=== PATIENT | female | born 1985 | race Caucasian/White ===

== ENCOUNTER 2021-01-11 07:45 | Inpatient (IN) | payer OTHER ==
[~2021-01-11] VITALS: Ht 172.7 cm; Wt 83.5 kg
--- NOTE | ~2021-01-11 | O ---
[facility] [place] [address] OPERATIVE REPORT Name: LIVAN CHANG Room #: 435-P ADM IN M.R.#: [id number] Admission: 01/11/21 Attend Phys: Tom Soriano MD Discharge: Date of : 83 Report #: [id number] THIS REPORT FOR: cc: FAM - No family physician/PCP FAM - No family physician/PCP Jesús Guaman MD ~ DATE OF SERVICE: 01/13/2021 PREOPERATIVE DIAGNOSIS: Symptomatic cholelithiasis. POSTOPERATIVE DIAGNOSIS: Acute cholecystitis. OPERATION: Laparoscopic cholecystectomy. SURGEON: Jesús Guaman MD ANESTHESIA: General. ESTIMATED BLOOD LOSS: Minimal. SPECIMENS: Gallbladder. DESCRIPTION OF PROCEDURE: After informed consent was obtained, the patient was brought to the operating room and placed supine. SCDs were placed and working, preoperative antibiotics were administered, general anesthesia was induced. The abdomen was prepped and draped in the usual sterile fashion. A 10 mm incision was made below the umbilicus. Fascia was incised and a trocar was placed. Pneumoperitoneum was established. Three right upper quadrant 5 mm ports were placed. Gallbladder was grasped at the fundus and retracted cephalad. Infundibulum was grasped and retracted laterally. I dissected out the cystic duct and cystic artery. Cystic duct and artery were identified. Cystic plate was identified. Cystic duct and artery were clipped and ligated leaving 2 clips on the remaining duct and one on the remaining artery. Gallbladder was then taken off the liver bed with electrocautery. It was placed into an Endopouch and removed. Fascia was then closed with a vsazan-kc-[id number] 0 Vicryl. Skin was closed with 4-0 Monocryl. Incisions were dressed with Steri-Strips. COMPLICATIONS: None. DISPOSITION: The patient was taken to recovery in satisfactory condition. By: 1233 [id number] Jesús Guaman MD /nt
[2021-01-11 07:57] VITALS: BP 136/74
[2021-01-11 08:29] LABS: URINE BILIRUBIN NEGATIVE (Negative); URINE BLOOD 3+ (Negative); URINE CLARITY CLEAR; URINE COLOR YELLOW; URINE GLUCOSE-RANDOM* NEGATIVE (Negative); URINE KETONES NEGATIVE (Negative); URINE LEUKOCYTES-REFLEX NEGATIVE (Negative); URINE NITRITE-REFLEX NEGATIVE (Negative); URINE PROTEIN (DIPSTICK) NEGATIVE (Negative); URINE UROBILINOGEN 0.2 E.U./dl (0.2-1.0)
[2021-01-11 09:40] LABS: ABSOLUTE NEUTROPHILS 9.2 thou/uL (1.4-8.2); BASOPHILS 0.2 % (0.0-2.0); EOSINOPHILS 0.3 % (0.0-3.0); HEMATOCRIT 39.7 % (37.0-47.0); HEMOGLOBIN 12.9 gm/dL (12.0-15.0); LYMPHOCYTES 11.7 % (24.0-44.0); MCH 26.8 pg (26.0-34.0); MCHC 32.5 g/dL (28.0-37.0); MCV 82.5 fL (80.0-100.0); MONOCYTES 3.2 % (1.0-8.0); PLATELET COUNT 158 thou/uL (150-400); POLYS 84.6 % (36.0-66.0); RBC 4.82 mil/uL (4.20-5.00); RDW 14.4 % (10.5-14.5); WBC 10.9 thou/uL (4.0-11.0)
[2021-01-11 09:55] LABS: CALCIUM 9.4 mg/dL (8.5-10.1); CREATININE 0.9 mg/dL (0.6-1.0); POTASSIUM 4.2 mmol/L (3.5-5.1)
[2021-01-11 09:55] LABS: CASTS None Seen /LPF (None Seen); MUCUS 0-3 Light strn/LPF (None Seen); SQUAMOUS 4-10 Moderate /LPF (0-3)
[2021-01-11 09:56] LABS: BACTERIA-REFLEX 1-9 Few /HPF (None Seen); CRYSTALS None Seen /LPF (None Seen); URINE RBC 3-10 Few /HPF (NONE SEEN); URINE WBC-REFLEX 0-5 Rare /HPF (0-5)
[2021-01-11 10:01] LABS: ALBUMIN 3.6 g/dL (3.4-5.0); TOTAL BILIRUBIN 0.5 mg/dL (0.2-1.0); TOTAL PROTEIN 8.2 g/dL (6.4-8.2)
[2021-01-11 19:43] VITALS: BP 104/47
[2021-01-11 19:44] VITALS: BP 104/47
--- NOTE | 2021-01-11 20:01 | NUR ---
THIS NURSE ATTEMPTING TO CALL REPORT FOR A SECOND TIME.
[2021-01-11 21:00] VITALS: BP 112/64
--- NOTE | 2021-01-12 02:39 | NUR ---
PT WAS ADMITTED TO THE UNIT FROM THE ER IN A STABLE CONDITION IN THE COMPANY OF HER NIECE.PT DENIED PAIN SO FAR.PT NPO SINCE ADMIT.PT CONT ON IVF ORDERED.PT WITH ANKLE MONITOR.PT TURKISH SPEAKING,ADMISSION CPMPLETED WITH HELP OF NIECE.CONSULT CALLED TO DR BARRAZA VIA ANSWERING MACHINE.PT SLEEPING AT THIS TIME.CALL LIGHT WITHIN REACH.
[2021-01-12 04:00] VITALS: BP 98/53
[2021-01-12 07:48] VITALS: BP 111/51
[2021-01-12 08:19] LABS: ABSOLUTE NEUTROPHILS 3.8 thou/uL (1.4-8.2); BASOPHILS 0.4 % (0.0-2.0); EOSINOPHILS 2.4 % (0.0-3.0); HEMATOCRIT 35.5 % (37.0-47.0); HEMOGLOBIN 11.7 gm/dL (12.0-15.0); LYMPHOCYTES 29.3 % (24.0-44.0); MCH 27.2 pg (26.0-34.0); MCV 82.4 fL (80.0-100.0); MONOCYTES 6.7 % (1.0-8.0); PLATELET COUNT 223 thou/uL (150-400); POLYS 61.2 % (36.0-66.0); RBC 4.31 mil/uL (4.20-5.00); RDW 14.6 % (10.5-14.5); WBC 6.2 thou/uL (4.0-11.0)
[2021-01-12 08:39] LABS: ALBUMIN 2.6 g/dL (3.4-5.0); CALCIUM 8.1 mg/dL (8.5-10.1); CREATININE 0.8 mg/dL (0.6-1.0); MAGNESIUM 2.2 mg/dL (1.8-2.4); POTASSIUM 3.9 mmol/L (3.5-5.1); TOTAL BILIRUBIN 0.7 mg/dL (0.2-1.0); TOTAL PROTEIN 6.8 g/dL (6.4-8.2)
[2021-01-12 09:11] VITALS: BP 98/53
--- NOTE | 2021-01-12 12:51 | NUR ---
ASSUMED CARE OF PT AT 0700 THIS MORNING. ASSESSMENTS PERFORMED AFTER REPORT TAKEN. PT IS A/OX4, [place] SPEAKING ONLY AND USE OF SHOE FITTER IS NEEDED. ASSESSMENTS CHARTED AND OTHERWISE UNREMARKABLE. PT IS UP INDEP AND NO FALL PRECAUTIONS NEEDED. MEDS AND TX GIVEN NEEDED AND SCHEDULED. WILL MONITOR AND NOTE ANY CHANGES.
[2021-01-12 19:14] VITALS: BP 109/53
--- NOTE | 2021-01-13 03:41 | NUR ---
ASSUMED CARE OF PT AT 1900. BEDSIDE REPORT RECIEVED, ALLYSON ASSESSMENT COMPLETE. NIECE AT BEDSIDE. PT HAVING MILD PAIN TO RUQ AT ALLYSON. PT WILL BE AT NPO AT CT. PROVIDED PT EDUCATION. PT VERBALIZED UNDERSTANDING WELL NIECE. IVF RUNNING ORDERED. PT FEBRILE AT 99.0, PRN TYLENOL GIVEN FOR FEVER. PT PREPARING TO HAVE LAPCHOLY IN AM. WENT OVER EDUCATION WITH PT AND NIECE ON WHAT TO EXPECT. PT DENIES ANY OTHER NEEDS AT THIS TIME, CALL LIGHT IN REACH. HOURLY ROUNDING CONTINUING ON.
[2021-01-13 06:32] LABS: CALCIUM 8.5 mg/dL (8.5-10.1); CREATININE 0.8 mg/dL (0.6-1.0)
[2021-01-13 06:39] LABS: HEMATOCRIT 35.5 % (37.0-47.0); HEMOGLOBIN 11.7 gm/dL (12.0-15.0); MCH 27.2 pg (26.0-34.0); MCV 82.5 fL (80.0-100.0); RBC 4.3 mil/uL (4.20-5.00); RDW 14.1 % (10.5-14.5); WBC 7.7 thou/uL (4.0-11.0)
[2021-01-13 08:18] VITALS: BP 117/54
--- NOTE | 2021-01-13 09:35 | NUR ---
ASSUMED PT CARE THIS AM. PT IS ALERT & ORIENTED X4. PT HAS IV SITE ON LFA RUNNING NS @75ML/HR. PT IS UP AD RAMON. PT HAS BEEN NPO SINCE MIDNIGHT. PT IS ON ROOM AIR. WILL HAVE SURGERY TODAY. NO C/O OF PAIN, NAUSEA AND VOMITING. PT IS CYM[place]ES SPEAKING. WILL CONTINUE TO MONITOR PT. FOLLOW POC.
[2021-01-13 14:45] VITALS: BP 110/66
--- NOTE | 2021-01-13 15:39 | NUR ---
assessment: CM REVIEWED CHART AND SPOKE WITH PATIENTS HITESH RODRIGUEZ. PT IS ESTONIAN SPEAKING. PT HAD LAP ARMAND TODAY. PT LIVES AT HOME WITH HER SPOUSE AND CHILDREN. PT IS NORMALLY FULLY INDEPENDENT WITH ADLS AND AMBULATION. PT HAS NO INSURANCE. CM PROVIDED PATIENT WITH HEALTH RESOURCE PACKET IN [place] PROVIDED PATIENT WITH SAF[employer]Y [facility] CLIN[employer] AND PRESCIPTION DISCOUNT CARD. CM NOTIFIED PTS HITESH RODRIGUEZ OF THIS INFORMATION AND SHE STATES SHE WILL ALSO REVIEW IT. PT REPORTS NO FURTHER NEEDS FROM CM. PT WILL LIKELY DISCHARGE THIS WEEKEND.
[2021-01-13 22:20] VITALS: BP 111/59
--- NOTE | 2021-01-14 03:15 | NUR ---
ASSUMED CARE OF PT AT 1900. BEDSIDE REPORT RECIEVED. ALLYSON ASSESSMENT COMPLETE. PT HAS 4 LAP SITES C STERISTRIPS. NO REDNESS, HEAT, DRAINAGE OBSREVED. R HAND PIV CDI PATENT. IVF INFUSING ORDERED. PT C/O R UPPER SHOULDER PAIN. EDUCATION PROVIDED ON DISEASE PROCESS. PRN PAIN PILL GIVEN. PT UP ADLIB TO BATHROOM. REILLED WATER. TOLERATING C NO NAUSEA OR VOMITING. KATI ANY OTHER NEEDS AT THIS TIME. CALL LIGHT IN REACH
[2021-01-14 07:13] VITALS: BP 118/82
--- NOTE | 2021-01-14 09:52 | NUR ---
ASSUMED PT CARE THIS AM. PT IS ALERT & ORIENTED X4. PT HAS 4 LAP SITE WITH STERI STRIPS CLEAN AND INTACT. PT IS UP AD RAMON. PT IS ON ROOM AIR. PT HAS IV SITE ON R HAND RUNNING NS @75ML/HR. PT FAMILY CALLED THIS AM AND GAVE AN UPDATE. NO C/O OF PAIN, NAUSEA AND VOMITING. WILL CONTINUE TO MONITOR PT. FOLLOW POC.
[2021-01-14] MEDS ORDERED: ACETAMINOPHEN325 M1 PO (11:17)
[2021-01-14] MEDS ORDERED: MIRALAX17 GM PO (11:17)
[2021-01-14 11:30] VITALS: BP 118/82
--- NOTE | 2021-01-16 19:07 | PATH ---
[facility] [address] [place] [address] PATHOLOGY RPT PROCEDURE Name: LIVAN CHANG Room #: 435-P [facility] IN M.R.#: [id number] Admission: 01/11/21 Date of : 83 Discharge: 01/14/21 Report #: [id number] Path Case #: [id number] [facility] Accession Number: [id number] . 01 Material submitted: . gallbladder - GALLBLADDER . 01 Clinical history: . RUQ ABD PAIN, SYMPTOMATIC CHOLELITHIASIS LAPAROSCOPIC CHOLECYSTECTOMY CHOLECYSTITIS . 02 Diagnosis: Gallbladder, cholecystectomy: - Moderate chronic cholecystitis. - Cholelithiasis. . (IUV:amy; 01/16/2021) QMS 01/16/2021 1503 Local . 02 Electronically signed: . Brigitte Amador MD, Pathologist NPI- [id number] . 01 Gross description: . Fixative: Formalin Labeled: Gallbladder Specimen received: Previously punctured gallbladder Dimensions: 7.7 x 3.5 x 1.6 cm Serosa: [place] Lymph node: Not identified Mucosa: Velvety, bile-stained Average wall thickness: 0.1 cm Calculi: Present displaying a light valdes and granular appearance Abnormalities: None identified . Exceptional Children Teacher body, fundus, and the cystic duct margin in cassette A1. (CAA; 01/15/2021) QAC/QA 01/16/2021 1502 Local . 02 Pathologist provided ICD-10: K80.10 . 02 CPT . 635904 Specimen Comment: A courtesy copy of this report has been sent to [phone], [phone] [address] PATHOLOGY RPT PROCEDURE Name: MISTI CHANGOMARA Room #: 435-P DIS IN M.R.#: [id number] Admission: 01/11/21 Date of : 83 Discharge: 01/14/21 Report #: [id number] Path Case #: [id number] Specimen Comment: [id number] Specimen Comment: Report sent to DR. STRAUSS / DR JAVED Performed at: 01 [facility] [address], [place] [id number] MD Jones Valentine MD Phone: [phone] Performed at: [address] [id number] MD Brigitte Amador MD Phone: [phone]
== END 2021-01-14 12:02 | disposition home or self-care (01) | DRG 419 ==
LOC: ER 07:45 → EROBS 13:34 → 4S 20:12
PROVIDERS: Emergency Medicine; ADMIT Hospitalist; ATTEND Hospitalist
PROC: 0FT44ZZ Resection of Gallbladder, Percutaneous Endoscopic Approach (ICD-10-PCS; principal; 2021-01-13)
DX: K80.00 Calculus of gallbladder with acute cholecystitis without obstruction (principal); Z20.822 Contact with and (suspected) exposure to COVID-19; Z79.899 Other long term (current) drug therapy
CPT/HCPCS: 10195; 50010; 50101; 50411; 50555; 51489; 52265; 52266; 53307; 53312; 53314; 55245; 56462; 56525; 56526; 58574; 62110; 62900; 70005